=== PATIENT | female | born 1930 | race Asian ===

== ENCOUNTER 2018-12-03 17:37 | Emergency (ER) | payer MEDICARE, OTHER ==
[~2018-12-03] VITALS: Wt 63.0 kg
[2018-12-03] MEDS ORDERED: SOD CHLORIDE 0.9% 1,000 ML IV STA (17:51)
--- NOTE | 2018-12-03 18:35 | ERD ---
ER Documentation Chief Complaint Chief Complaint ABD PAIN GENERALIZED FOR THE PAST 4 DAYS. N/V BUT NO BM FOR FEW DAYS. HPI 88-year-old female prior history of appendectomy who presents to the emergency room with 4 days of abdominal pain with associated lack of bowel movements and passing gas. Patient denies any nausea or vomiting. The pain is mild diffuse periumbilical and 6 out of 10. She denies any fevers chest pain or shortness of breath. ROS All systems reviewed and are negative except as per history of present illness. Medications Home Meds Active Scripts Glycerin* (Glycerin (Adult)*) 1 Each Supp.rect, 1 EACH [place] DAILY PRN for CONSTIPATION for 10 Days, SUPP.RECT Prov:GEORGE CARL MD 12/03/18 Polyethylene Glycol* (Miralax*) 17 Gm Powd.pack, 17 GM PO DAILY PRN for CONSTIPATION, #7 Prov:GEORGE CARL MD 12/03/18 Allergies Allergies: Coded Allergies: No Known Allergy (Unverified , 12/03/18) FmHx Family History: No diabetes Physical Exam Vitals Vital Signs Date Temp Pulse Resp B/P (MAP) Pulse Ox O2 O2 Flow FiO2 Time Delivery Rate 12/03/18 54 14 97 Room Air 19:30 12/03/18 56 22 130/54 99 Room Air 19:20 (79) 12/03/18 98.0 66 18 120/57 98 17:52 (78) Physical Exam General: Well developed, well nourished, no acute distress Head: Normocephalic, atraumatic. Eyes: Pupils equally reactive, EOM intact ENT: Moist mucous membranes Neck: Supple, no lymphadenopathy Respiratory: Lungs clear bilaterally, no distress Cardiovascular: RRR, no murmurs, rubs, or gallops Abdominal: Soft, mild diffuse abdominal tenderness without rebound or guarding : Deferred MSK: No edema, no unilateral swelling, 5/5 strength Neurologic: Alert and oriented, moving all extremities, normal speech, no focal weakness, no cerebellar signs Skin: No rash Psych: Normal mood Result Diagram: 12/03/18185612/03/181856 Results 24 hrs Laboratory Tests Test 12/03/18 18:57 White Blood Count 2.2 10^3/ul Red Blood Count 2.85 10^6/ul Hemoglobin 9.2 g/dl Hematocrit 28.1 % Mean Corpuscular Volume 98.6 fl Mean Corpuscular Hemoglobin 32.3 pg Mean Corpuscular Hemoglobin Concent 32.7 g/dl Red Cell Distribution Width 12.8 % Platelet Count 185 10^3/UL Mean Platelet Volume 9.2 fl Immature Granulocytes % 0.000 % Neutrophils % 52.9 % Lymphocytes % 25.6 % Monocytes % 13.9 % Eosinophils % 7.2 % Basophils % 0.4 % Nucleated Red Blood Cells % 0.0 /100WBC Immature Granulocytes # 0.000 10^3/ul Neutrophils # 1.2 10^3/ul Lymphocytes # 0.6 10^3/ul Monocytes # 0.3 10^3/ul Eosinophils # 0.2 10^3/ul Basophils # 0.0 10^3/ul Nucleated Red Blood Cells # 0.0 10^3/ul Pathologist Review (Hematology) YES Sodium Level 142 mmol/L Potassium Level 4.1 mmol/L Chloride Level 109 mmol/L Carbon Dioxide Level 23 mmol/L Anion Gap 10 Blood Urea Nitrogen 35 mg/dl Creatinine 1.13 mg/dl Est Glomerular Filtrat Rate mL/min mL/min Glucose Level 107 mg/dl Calcium Level 9.7 mg/dl Total Bilirubin 0.4 mg/dl Direct Bilirubin 0.00 mg/dl Indirect Bilirubin 0.4 mg/dl Aspartate Amino Transf (AST/SGOT) 23 IU/L Alanine Aminotransferase (ALT/SGPT) 23 IU/L Alkaline Phosphatase 125 IU/L Total Protein 7.4 g/dl Albumin 4.3 g/dl Globulin 3.10 g/dl Albumin/Globulin Ratio 1.38 Lipase 247 U/L Current Medications Medications Dose Sig/Bk Start Time Status Last (Trade) Ordered Route PRN Stop Time Admin Dose Reason Admin Sodium 1,000 ml @ Q1H STAT 12/03/18 DC 12/03/18 Chloride 1,000 mls/hr IV 17:51 19:19 12/03/18 18:50 Procedures/MDM EKG, MONITORS, & DIAGNOSTIC IMAGING: CT abdomen and pelvis: IMPRESSION: 1. COPD/emphysema. 2. Diverticulosis distal transverse, descending and proximal sigmoid colon. No acute diverticulitis. 3. Posterior lateral right urinary bladder diverticulum. 4. Prominent ovaries for age. LAB INTERPRETATION: I reviewed the laboratory testing and it shows wbc of 2, non specific, no old, needs follow up. MEDICAL DECISION MAKING: Presentation possibly consistent with constipation but given age and prior surgical history cannot rule out bowel obstruction or other acute interabdominal process. CT imaging of the abdomen pelvis would be appropriate. No signs or symptoms concerning for cardiac etiology. ER COURSE: * Patient continues to be well-appearing. Laboratory testing is only remarkable for leukopenia that needs to be followed up on outpatient basis. No baseline. * Patient was given magnesium citrate. * At this point the patient can be safely discharged home with bowel regimen. Return precautions were discussed and understood. CONSULTATION: None DISPOSITION PLAN: The patient does not have an identifiable emergent medical condition that warrants inpatient hospitalization at this time. The patient is deemed safe for discharge with outpatient follow-up. We discussed follow up with the patient's primary care doctor within 24 to 48 hours as needed. We also discussed return to the emergency room for worsening symptoms or worsening condition. Outpatient referral: None required Discharge Medications: Glycerin suppository, MiraLAX Departure Diagnosis: Primary Impression: Generalized abdominal pain Additional Impressions: Constipation Constipation type: unspecified constipation type Qualified Codes: K59.00 - Constipation, unspecified Leukopenia Leukopenia type: unspecified Qualified Codes: D72.819 - Decreased white blood cell count, unspecified Condition: Stable GEORGE CARL MD Dec 03, 2018 18:35
[2018-12-03] MEDS ORDERED: GLYC1SUP92 PR (19:59)
[2018-12-03] MEDS ORDERED: POLY17PO6 PO (19:59)
[2018-12-03] MEDS ORDERED: MAGNESIUM CITRATE 300 ML BTL PO ONE (20:00)
[2018-12-03 20:42] VITALS: BP 145/69; PULSE 79; RESP 18
== END 2018-12-03 20:49 | disposition home or self-care (01) ==
LOC: E/R 17:37
DX: K59.00 Constipation, unspecified (principal); D72.819 Decreased white blood cell count, unspecified; R40.2142 Coma scale, eyes open, spontaneous, at arrival to emergency department; R40.2252 Coma scale, best verbal response, oriented, at arrival to emergency department; R40.2362 Coma scale, best motor response, obeys commands, at arrival to emergency department
CPT/HCPCS: 36415; 74176; 80053; 83690; 85025; 99285; J7030